=== PATIENT | male | born 1940 | race Caucasian/White ===

== ENCOUNTER 2023-05-24 08:50 | Inpatient (IN) | payer OTHER ==
[~2023-05-24] VITALS: Ht 180.3 cm; Wt 74.4 kg
[2023-05-24 08:52] VITALS: BP_SYST 175; PULSE 72; RESP 18; TEMP 98.5; O2SAT 98
[2023-05-24 09:58] LABS: BASOPHILS % (AUTO) 0.7 % (0.0-2.0); EOSINOPHILS # (AUTO) 0.1 K/uL (0.0-0.4); EOSINOPHILS % (AUTO) 1.2 % (0.0-4.0); HEMATOCRIT 29.9 % (36-54); HEMOGLOBIN 10.3 g/dL (14.0-18.0); LYMPHOCYTES # (AUTO) 1.2 K/uL (1.0-5.5); LYMPHOCYTES % (AUTO) 16.2 % (20.5-51.5); MEAN CORPUSCULAR HEMOGLOBIN 34 pg (27-31); MEAN CORPUSCULAR HGB CONC 34 % (32-36); MEAN CORPUSCULAR VOLUME 99 fL (79.0-98.0); MONOCYTES # (AUTO) 0.6 K/uL (0.0-1.0); MONOCYTES % (AUTO) 8.1 % (1.7-9.3); NEUTROPHILS # (AUTO) 5.4 K/uL (1.8-7.7); NEUTROPHILS % (AUTO) 73.8 % (40.0-70.0); PLATELET COUNT (AUTO) 272 K/uL (130-430); RED BLOOD CELL COUNT(AUTO) 3.01 MIL/uL (4.2-6.2); RED CELL DISTRIBUTION WIDTH 13.7 % (9.0-15.0); WHITE BLOOD COUNT (AUTO) 7.3 K/uL (4.8-10.8)
[2023-05-24 10:21] LABS: ANION GAP 8 (5-15); CALCIUM 8.3 mg/dL (8.4-11.0); CARBON DIOXIDE 27 mmol/L (23-29); CHLORIDE 109 mmol/L (98-107); CREATININE 1.34 mg/dL (0.55-1.30); GLUCOSE 88 mg/dL (74-106); POTASSIUM 3.3 mmol/L (3.5-5.1); SODIUM SERUM 144 mmol/L (136-145); UREA NITROGEN, BLOOD 20 mg/dL (8-21)
[2023-05-24] MEDS ORDERED: IPRATROPIUM BROM 0.5 MG/2.5 ML VIAL.NEB (ATROVENT) INH PRN (11:00)
[2023-05-24] MEDS ORDERED: HYDROcodone/ACETAMIN 10-325 MG TAB PO PRN (11:00)
[2023-05-24] MEDS ORDERED: HYDROcodone/ACETAMIN 5-325 MG TAB (NORCO/ VICODIN) PO PRN (11:00)
[2023-05-24] MEDS ORDERED: ALBUTEROL SULFATE 0.083% 2.5 MG/3 ML VIAL.NEB INH PRN (11:00)
[2023-05-24] MEDS ORDERED: ONDANSETRON HCL 4 MG/2 ML VIAL IVP PRN (11:00)
[2023-05-24] MEDS: FUROSEMIDE 20 MG/2 ML VIAL IVP ONE (11:06)
[2023-05-24 11:40] LABS: ALBUMIN 3.5 g/dL (3.4-4.8); BILIRUBIN,DIRECT 0.2 mg/dL (0.0-0.3); THYROID STIMULATING HORMONE 1.12 uIu/mL (0.34-4.82); TOTAL BILIRUBIN 0.7 mg/dL (0.0-1.0)
[2023-05-24] MEDS: hydrALAZINE HCL 20 MG/ML VIAL IVP PRN (13:27)
[2023-05-24 13:39] VITALS: BP_SYST 172; PULSE 83; O2SAT 97
[2023-05-24] MEDS ORDERED: OLME40TA70 PO (13:39)
[2023-05-24] MEDS ORDERED: GLUC-119 PO (13:39)
[2023-05-24] MEDS ORDERED: MULT-1117 PO (13:39)
[2023-05-24] MEDS: ACETAMINOPHEN 325 MG TABLET PO PRN (14:13)
[2023-05-24] MEDS: POTASSIUM CHLORIDE 20 MEQ/PKT PACKET PO ONE (15:15)
[2023-05-24 17:14] VITALS: BP_SYST 164; PULSE 85; RESP 16; TEMP 98.9; O2SAT 98
[2023-05-24 17:25] VITALS: BP_SYST 164; PULSE 85; RESP 16; TEMP 98.9
[2023-05-24] MEDS ORDERED: traZODone HCL 50 MG TABLET (DESYREL) PO PRN (17:45)
[2023-05-24] MEDS: FUROSEMIDE 40 MG/4 ML VIAL IVP SCH (17:52)
[2023-05-24 18:06] VITALS: O2SAT 98
[2023-05-24 19:40] VITALS: BP_SYST 144; PULSE 73; RESP 20; TEMP 98.7; O2SAT 98
[2023-05-24] MEDS: SACUBITRIL/VALSARTAN 24 MG-26 MG 1 TABLET PO SCH (21:00)
[2023-05-24] MEDS: MONTELUKAST 10 MG TABLET PO SCH (21:17)
[2023-05-24] MEDS: ATORVASTATIN 20 MG TABLET PO SCH (21:18)
[2023-05-24] MEDS: CARVEDILOL 6.25 MG TABLET (COREG) PO SCH (21:18)
[2023-05-24] MEDS: HEPARIN SODIUM,PORCINE 5,000 UNITS/ML VIAL SUBCUT SCH (21:19)
[2023-05-25 00:32] VITALS: BP_SYST 147; PULSE 77; RESP 18; TEMP 97.8; O2SAT 99
[2023-05-25] MEDS ORDERED: TRAM50TA2 PO (04:18)
[2023-05-25] MEDS ORDERED: FLOR.1 GT (04:18)
[2023-05-25] MEDS ORDERED: MONT-40 PO (04:18)
[2023-05-25] MEDS ORDERED: FLOR.1 PO (04:18)
[2023-05-25 06:06] LABS: BASOPHILS # (AUTO) 0.1 K/uL (0.0-0.2); BASOPHILS % (AUTO) 0.8 % (0.0-2.0); EOSINOPHILS # (AUTO) 0.1 K/uL (0.0-0.4); EOSINOPHILS % (AUTO) 1.9 % (0.0-4.0); HEMATOCRIT 31.5 % (36-54); HEMOGLOBIN 10.9 g/dL (14.0-18.0); LYMPHOCYTES # (AUTO) 1.8 K/uL (1.0-5.5); LYMPHOCYTES % (AUTO) 22.5 % (20.5-51.5); MEAN CORPUSCULAR HEMOGLOBIN 34 pg (27-31); MEAN CORPUSCULAR HGB CONC 35 % (32-36); MEAN CORPUSCULAR VOLUME 98 fL (79.0-98.0); MONOCYTES # (AUTO) 0.7 K/uL (0.0-1.0); MONOCYTES % (AUTO) 9.2 % (1.7-9.3); NEUTROPHILS # (AUTO) 5.1 K/uL (1.8-7.7); NEUTROPHILS % (AUTO) 65.6 % (40.0-70.0); PLATELET COUNT (AUTO) 307 K/uL (130-430); RED BLOOD CELL COUNT(AUTO) 3.23 MIL/uL (4.2-6.2); RED CELL DISTRIBUTION WIDTH 13.7 % (9.0-15.0); WHITE BLOOD COUNT (AUTO) 7.8 K/uL (4.8-10.8)
[2023-05-25 06:07] LABS: INR 1.1 (0.80-1.20); PROTHROMBIN TIME 11.5 SECS (9.5-12.5)
[2023-05-25 06:48] LABS: ANION GAP 11 (5-15); CALCIUM 8.5 mg/dL (8.4-11.0); CARBON DIOXIDE 26 mmol/L (23-29); CHLORIDE 103 mmol/L (98-107); CHOLESTEROL 157 mg/dL (<200); CREATININE 1.36 mg/dL (0.55-1.30); GLUCOSE 95 mg/dL (74-106); HDL CHOLESTEROL 33 mg/dL (>45); POTASSIUM 3.2 mmol/L (3.5-5.1); SODIUM SERUM 140 mmol/L (136-145); TRIGLYCERIDES 72 mg/dL (30-150); UREA NITROGEN, BLOOD 19 mg/dL (8-21)
[2023-05-25 07:56] VITALS: BP_SYST 130; PULSE 70; RESP 18; TEMP 97.5; O2SAT 97
[2023-05-25] MEDS: ASPIRIN 81 MG TAB.CHEW PO SCH (09:05)
[2023-05-25] MEDS: POTASSIUM CHLORIDE 20 MEQ TABLET.ER PO ONE (09:10)
[2023-05-25] MEDS: FLUTICASONE PROPIONATE 50 mCg/SPRAY 16 GM NS SCH (09:33)
[2023-05-25 13:08] VITALS: BP_SYST 134; PULSE 71; RESP 18; TEMP 99.6; O2SAT 96
[2023-05-25] MEDS ORDERED: SACU1TAB PO (13:32)
[2023-05-25] MEDS ORDERED: ASPI-1393 PO (13:32)
[2023-05-25] MEDS ORDERED: LIP20 PO (13:32)
[2023-05-25] MEDS ORDERED: FURO-150 PO (13:32)
[2023-05-25] MEDS ORDERED: COR6.25 PO (13:32)
[2023-05-25 13:36] VITALS: BP_SYST 134; PULSE 71; RESP 18; TEMP 99.6; O2SAT 96
== END 2023-05-25 14:00 | disposition home or self-care (01) | DRG 291 ==
LOC: SED 08:50 → STU 10:56
PROVIDERS: ADMIT Internal Medicine; ATTEND Internal Medicine
DX: I13.0 Hypertensive heart and chronic kidney disease with heart failure and stage 1 through stage 4 chronic kidney disease, or unspecified chronic kidney disease (principal); I50.23 Acute on chronic systolic (congestive) heart failure; N17.9 Acute kidney failure, unspecified; J44.9 Chronic obstructive pulmonary disease, unspecified; I42.9 Cardiomyopathy, unspecified; N18.9 Chronic kidney disease, unspecified; Z95.0 Presence of cardiac pacemaker; Z79.899 Other long term (current) drug therapy
CPT/HCPCS: 36415; 71045; 80048; 80061; 80076; 83037; 83735; 83880; 84443; 84484; 85025; 85610; 93005; 93306; 94760; 96374; 96375; 99285; G0378; J1644; J1940